=== PATIENT | female | born 1995 | race Hispanic/Latino ===

== ENCOUNTER 2024-08-01 22:09 | Emergency (ER) | payer MEDICAID ==
[~2024-08-01] VITALS: Ht 160 cm; Wt 81.6 kg
[~2024-08-01 22:09] MED LIST: PREN-196 PO
[2024-08-01 23:40] VITALS: BP 122/78; PULSE 96; RESP 16; TEMP 98.1; O2SAT 98
--- NOTE | 2024-08-01 23:53 | NUR ---
PATIENT ACCEPTED TO [facility]
--- NOTE | 2024-08-02 00:01 | ERN ---
ED Note History of Present Illness Stated Complaint: PT SENT HERE FOR INDUCTION Chief Complaint: OB>20 weeks gest. Time Seen by MD: 22:15 Dictation: This is a 29-year-old female with 5th full-term was sent by Dr. Richards with orders for induction of labor. Apparently patient was not instructed to go to [facility] and she presented to the emergency room at [facility]. Labor and delivery services are no longer available at this facility. No rupture of the membranes or amniotic f luid leak, no vaginal bleeding She had good care and has no complications so far. All her previous pregnancies were uneventful with vaginal deliveries. Allergies: Coded Allergies: No Known Drug Allergies (Unverified Allergy, Unknown, 02/23/17) Home Meds Reported Medications Vit No.124/Iron/FA ( Vitamin Tablet) 1 Each Tablet, 1 EACH PO DAILY, TAB 11/19/22 Past Medical History Past Medical History: No Pertinent History Surgical History: None Family History: Negative Social History: Negative History: Not Applicable LMP: Nov 05, 2023 : 5 Para: 3 Aborts: 1 RN Note Reviewed/Agreed w/PFSH: Yes Review of System Dictation Constitutional: Negative for fever,chills, and weight loss Eyes: Negative for injury, pain,redness, and discharge ENT: Negative for injury,pain or swelling Cardiovascular: Negative for chest pain, palpitations, and edema Respiratory: Negative for shortness of breath, cough, and wheezing, Abdomen/GI: Negative for abdominal pain, nausea, vomiting, diarrhea, and constipation Back: Negative for injury and pain : Negative for injury, bleeding and discharge patient indicated that she was having contractions once in 5-7 minutes, no rupture of membranes or amniotic fluid leak MS/Extremity: Negative for injury and deformity Skin: Negative for rash, and discoloration Neuro: Negative for headache, weakness, numbness, tingling, and seizure Psych: Negative for suicide ideation, homicidal ideation, and hallucinations Initial Vital Sign VS Vital Signs Date Time Temp Pulse Resp B/P (MAP) Pulse Ox O2 Delivery O2 Flow Rate FiO2 08/01/24 22:13 98.1 101 20 145/102 97 Room Air 08/01/24 22:34 0 21 Physical Exam Dictation General: awake, alert, NAD Head/Face: Normocephalic, atraumatic Eyes: PERRL, EOMI, vision at baseline ENT: oral cavity clear, TMs clear, no signs of infection Neck: Trachea midline, supple, no nuchal rigidity Cardiovascular: RRR, normal S1/S2, No MRGs, no JVD Respiratory: CTAB, no respiratory distress, No rales or wheezes Abdomen: Soft, non-tender, non-distended, normal bowel sounds, no guarding or rebound. Gravid uterus Skin: Warm, dry, normal turgor, no rash MS/Extremity: Pulses equal, no cyanosis, neurovascular intact, FROM Neuro: COAx4, GCS 15, strength 5/5, CN 2-12 intact, normal cerebellar exam, normal gait, Psych: Normal behavior, mood, and affect normal Extremities-trace edema without any palpable cords, Homans sign is negative Results (Laboratory/Radiology) Labs Reviewed?: Yes ED Course ED Course Vital Signs Date Time Temp Pulse Resp B/P (MAP) Pulse Ox O2 Delivery O2 Flow Rate FiO2 08/01/24 23:40 98.1 96 16 122/78 98 Room Air* 0 21 08/01/24 22:34 98.2 104 16 137/75 98 Room Air* 0 21 08/01/24 22:13 98.1 101 20 145/102 97 Room Air Patient accidentally showed up at [facility] ER with the induction orders for labor and delivery and was supposed to go to [facility]. Patient was triaged and has excellent vital signs and has no symptoms other than periodic contractions. Transfer was initiated for L and D as services are not available here 11 50 p.m. discussed with AMY Ness who accepted the patient in transfer to her service at [facility] Medical Decision Making MDM MDM: Differential diagnosis: Active labor, pseudo labor, Rationale: Tests considered and ordered secondary to shared decision making include: labs, ECG and radiology Previous outside records reviewed: Old ER visits. Risk of complication and/or morbidity or mortality of patient management: None Medications-Per medication reconciliation Need for hospitalization: Patient does meet criteria for hospitalization. Need for emergency major/minor surgery: No There are no social concerns with this patient. Prescription drug management Prescriptions will include symptomatic care Patient's prior external medical records from other ER visits were reviewed by me as indicated. Prior testing and results from previous visits were reviewed. Prior tests were taken into account with medical decision making and resource utilization, independent historian/historians were used to obtain complete medical history. I independently interpreted the test that were performed, results were reviewed by me and considered findings on radiology if ordered. Medical management and examination interpretation discussions were had by me with other qualified healthcare professionals as indicated for the patient's c are. Problem List Problem List: (1) (2) Active labor at term DX & DISP Disposition: Transfer Departure Impression: Primary Impression: Additional Impression: Active labor at term Condition: Stable Additional Instructions: The patient has been informed about all the diagnostic tests and procedures carried out in the emergency room today and has confirmed understanding of the results. Patient will be transferred to a facility that provides a higher level of care since such services are not accessible locally or within our immediate community. The patient is alert oriented and not experiencing any acute distress. There are no signs of sepsis and patient's hemodynamic status is stable at the moment. Medically, the patient is considered stable for transfer Patient will be transferred to [facility] obstetrics, labor and delivery to Dr. Richards Service. Referrals: VU RICHARDS MD (PCP) LYNN KERR MD Aug 02, 2024 00:01
--- NOTE | 2024-08-02 00:24 | NUR ---
REPORT CALLED TO [facility]
--- NOTE | 2024-08-02 00:26 | NUR ---
PENDING EMS TO TRANSPORT PATIENT [place] [facility]
== END 2024-08-02 01:52 | disposition short-term general hospital (02) ==
LOC: EDH 22:09
DX: Z33.2 Encounter for elective termination of pregnancy (principal); Z3A.20 20 weeks gestation of pregnancy
CPT/HCPCS: 99285